=== PATIENT | female | born 1965 | race African-American/Black ===

== ENCOUNTER 2016-11-04 09:15 | Emergency (ER) | payer OTHER ==
[~2016-11-04] VITALS: Ht 160 cm; Wt 92.7 kg
[~2016-11-04 09:15] MED LIST: ACTOS PO; ADVAIR 100/501 DISK IH; ALPRAZOLAM0.5 MG; ALPRAZOLAM0.5 MG PO; AMBIEN CR12.5 MG PO; AVINza PO; CARISOPRODOL350 MG PO; CRESTOR10 MG PO; CRESTOR20 MG PO; CRESTOR40 MG PO; CYMBALTA30 MG PO; Combivent IH; Cymbalta PO; DIAZEPAM5 MG PO; DILAUDID2 MG PO; DILAUDID4 MG PO; Dilaudid PO; DuoNeb IH; EPITOL; EPITOL PO; EPITOL200 MG PO; Estrace PO; GUAIATUSSIN AC118 ML PO; GUAIFENESIN AC473 ML PO; HYCODAN SYRUP480 ML PO; HYDROCODON-ACE1 EAC5 PO; HYDROCODON-ACE1 EAC7 PO; HYDROCODON-ACE1 EAC9 PO; HYDROMORPHONE HC2 MG PO; INSULIN PUMP1 EACH MC; KADIAN30 MG PO; KLOR-CON M2020 MEQ PO; LEVAQUIN750 MG PO; LEVEMIR FL100 UNIT/1 SC; LEVEMIR FL100 UNITS/ SC; LEVEMIR100 UNIT/1 SQ; LEVOFLOXACIN500 MG PO; LEVOFLOXACIN750 MG PO; LISINOPRIL2.5 MG PO; LYRICA; LYRICA150 MG PO; LYRICA75 MG PO; Levaquin PO; MORPHINE SULFAT30 M4 PO; MORPHINE SULFAT30 M5 PO; MS Contin,Oramorph S PO; NAPROXEN500 MG PO; NOVOLIN,HU100 UNITS1 SC; NOVOLOG PE100 UNITS/ SC; OXCARBAZEPINE150 MG PO; OXCARBAZEPINE300 MG PO; PREDNISONE10 MG PO; PROMETHAZINE HC25 M1 PO; PROTONIX40 MG PO; QUETIAPINE FUM200 MG PO; SEROQUEL200 MG PO; SEROQUEL400 MG PO; SEROquel PO; SNAP INSULIN P1 EACH MC; SOMA; T:SLIM1 EAC1 MC; TAMIFLU75 MG PO; TEGRETOL200 MG PO; TEGretol PO; TRAMADOL HCL50 MG PO; TRILEPTAL150 MG PO; TRILEPTAL300 MG PO; TYLENOL REGULA325 MG PO; Trileptal PO; VALIUM10 MG; VALIUM10 MG PO; VALIUM5 MG PO; VENTOLIN HFA18 GM IH; VENTOLIN17 GM IH; Valium PO; Vicodin,Norco 5/325 PO; XANAX0.5 MG PO; XARELTO10 MG PO; Xanax PO; ZESTRIL2.5 MG PO; ZYDONE PO; Zestril,Prinivil PO; [UNRECOGNIZED DRUG - REMARK]; predniSONE PO
[2016-11-04 09:22] VITALS: BP 133/85
[2016-11-04] MEDS ORDERED: TYLENOL WITH C1 EACH PO (11:17)
== END 2016-11-04 11:32 | disposition home or self-care (01) ==
LOC: EME 09:15
DX: S90.32XA Contusion of left foot, initial encounter (principal); E11.9 Type 2 diabetes mellitus without complications; W01.0XXA Fall on same level from slipping, tripping and stumbling without subsequent striking against object, initial encounter; Z88.2 Allergy status to sulfonamides; Z88.0 Allergy status to penicillin; Z88.6 Allergy status to analgesic agent
CPT/HCPCS: 73630; 99281; 99284

== ENCOUNTER 2017-01-04 18:24 | Emergency (ER) | payer OTHER ==
[~2017-01-04] VITALS: Ht 160 cm; Wt 1.1 kg
[~2017-01-04 18:24] MED LIST changes: +TYLENOL WITH C1 EACH PO
[2017-01-04] MEDS ORDERED: NAPROSYN500 MG PO (20:27)
[2017-01-04] MEDS ORDERED: VICODIN 5-3001 EACH PO (20:27)
[2017-01-04 20:59] VITALS: BP 128/77
== END 2017-01-04 21:00 | disposition home or self-care (01) ==
LOC: EME 18:24
DX: S22.41XA Multiple fractures of ribs, right side, initial encounter for closed fracture (principal); W18.30XA Fall on same level, unspecified, initial encounter; Y93.01 Activity, walking, marching and hiking; Y92.480 Sidewalk as the place of occurrence of the external cause; Z88.2 Allergy status to sulfonamides; Z88.6 Allergy status to analgesic agent; Z88.0 Allergy status to penicillin
CPT/HCPCS: 71020; 99281; 99283

== ENCOUNTER 2017-05-19 23:51 | Emergency (ER) | payer OTHER ==
[~2017-05-19] VITALS: Ht 154.9 cm; Wt 87.7 kg
[~2017-05-19 23:51] MED LIST changes: +NAPROSYN500 MG PO; +VICODIN 5-3001 EACH PO
[2017-05-20 00:08] LABS: POINT-OF-CARE METER ID UU13113778
[2017-05-20 00:36] LABS: BASOPHIL COUNT 0.1 K/uL (0-0.1); EOSINOPHIL COUNT 0.2 K/uL (0-0.3); HEMATOCRIT 37.1 % (36.0-46.0); IMMATURE GRANULOCYTE (%) 0.3 % (0.0-0.7); INSTRUMENT ABS NEUTROPHIL CT 7.8 K/uL; LYMPHOCYTE COUNT 2.5 K/uL (1.0-2.8); MCH 29.3 PG (29.0-34.0); MCHC 33.2 G/DL (30.0-36.0); MCV 88.3 FL (83-99); MEAN PLAT.VOLUME 8.8 uM^3 (9.5-12.4); MONOCYTE (%) 6.8 % (3-12); MONOCYTE COUNT 0.8 K/uL (0-0.8); NEUTROPHIL (%) 68.6 % (45-76); NEUTROPHIL COUNT 7.8 K/uL (1.8-6.4); PLATELET COUNT 218 K/uL (156-360); RBC DIS.WIDTH-CV 12.8 % (11.8-14.6); RBC DIS.WIDTH-SD 41.6 % (39-53); WHITE BLOOD COUNT 11.3 K/uL (4.1-10.2)
[2017-05-20 00:45] LABS: CHLORIDE 100 mEq/L (99-109); POTASSIUM 3.5 mEq/L (3.7-5.4); SODIUM 137 mEq/L (136-147)
[2017-05-20 00:46] LABS: GLUCOSE 98 mg/dL (70-99)
[2017-05-20 00:48] LABS: ANION GAP 13 MEQ/L (2-14)
[2017-05-20 00:50] LABS: GFR ESTIMATE (CALCULATED) > 59 mL/min/
[2017-05-20 00:51] LABS: UREA NITROGEN (BUN) 7 mg/dL (9-23)
[2017-05-20 01:40] LABS: POINT-OF-CARE METER ID UU13113702
[2017-05-20] MEDS ORDERED: UNABLE TO OBTAIN (03:24)
[2017-05-20 03:26] VITALS: BP 107/51
== END 2017-05-20 03:33 | disposition home or self-care (01) ==
LOC: EME 23:51
PROVIDERS: Emergency Medicine
DX: T38.3X1A Poisoning by insulin and oral hypoglycemic [antidiabetic] drugs, accidental (unintentional), initial encounter (principal); E11.9 Type 2 diabetes mellitus without complications; Z79.4 Long term (current) use of insulin; J44.9 Chronic obstructive pulmonary disease, unspecified; F17.200 Nicotine dependence, unspecified, uncomplicated
CPT/HCPCS: 80048; 82948; 85025; 99281; 99284